=== PATIENT | female | born 1985 | race African-American/Black ===

== ENCOUNTER 2017-10-02 14:42 | Inpatient (IN) ==
[2017-10-02] MEDS ORDERED: ONDANSETRON 4 MG/2 ML VIAL IV PRN (15:07)
[2017-10-02] MEDS ORDERED: BUTORPHANOL 2 MG/ML VIAL IV PRN (15:07)
[2017-10-02] MEDS ORDERED: BUTORPHANOL 1 MG/ML VIAL IV PRN (15:07)
[2017-10-02] MEDS ORDERED: DINOPROSTONE VAG GEL 10 MG SYRINGE VAG ONE (15:10)
[2017-10-02 15:47] LABS: Basophils % 0.3 % (0.0-0.8); Eosinophils # 0.1 10*3/uL (0.0-0.87); Eosinophils % 1.4 % (0.00-10.9); Hematocrit 34.9 VOL% (35.7-47.0); Hemoglobin 11.6 GM/DL (12.0-16.0); Immature Granulocytes % 0.6 %; Immature Granulocytes Absolute 0.06 #; Lymphocytes # 2.1 10*3/uL (1.4-4.0); Lymphocytes % 22.3 % (21.3-54.2); Mean Corpuscular HGB Conc 33.2 GM/DL (32-36); Mean Corpuscular Hemoglobin 28 PG (27-34); Mean Corpuscular Volume 85.5 FL (87-102); Mean Platelet Volume 11.9 FL (9.6-12.0); Monocytes # 0.6 10*3/uL (0.11-0.8); Monocytes % 6.7 % (1.7-12.7); Neutrophils # 6.4 10*3/uL (1.4-7.4); Neutrophils % 68.7 % (38.7-73.9); Platelet Count 236 T/CUMM (130-400); Red Blood Count 4.08 MC/CUMM (3.8-5.5); White Blood Count 9.3 T/CUMM (4-12)
[2017-10-02 16:26] LABS: Albumin 3.1 G/DL (3.4-5.0); Bilirubin,Total 0.4 MG/DL (0.2-1.0); Calcium 8.9 MG/DL (8.5-10.1); Osmolality,Calculated 277.3 MOS/KG (273-304); Potassium 3.8 MMOL/L (3.5-5.1); Total Protein 6.2 G/DL (6.4-8.3); Uric Acid 3.7 MG/DL (2.6-6.0)
[2017-10-02] MEDS ORDERED: diphenhydrAMINE 50 MG/1 ML VIAL IV PRN ×2 (17:43)
[2017-10-02] MEDS ORDERED: FAMOTIDINE 20 MG/2 ML VIAL IV ONE (17:43)
[2017-10-02] MEDS ORDERED: CITRIC ACID/SODIUM CITRATE 30 ML UDCUP PO ONE (17:43)
[2017-10-02] MEDS ORDERED: PROMETHAZINE 25 MG/1 ML VIAL IM ONE (17:43)
[2017-10-02] MEDS ORDERED: ePHEDrine 50 MG/ML AMP IV PRN ×2 (17:43)
[2017-10-02] MEDS ORDERED: hydrOXYzine HCL 25 MG/1 ML VIAL IM PRN (17:43)
[2017-10-02] MEDS ORDERED: LACTATED RINGERS 1,000 ML IV SCH (18:00)
[2017-10-02] MEDS: LACTATED RINGERS 1,000 ML IV SCH ×3 (18:05→22:47)
[2017-10-02] MEDS: fentaNYL 2 MCG/ROPIV 0.2% EPID 150 ML EPIDURAL SCH (19:25)
[2017-10-02 20:19] LABS: Rapid Plasma Reagin Confirm NONREACTIVE (Nonreactive)
[2017-10-02 21:49] LABS: Apearance,Urine CLEAR (Clear); Bilirubin,Urine Negative (Negative); Blood, Urine Negative (Negative); Glucose,Urine (UA) Negative (Negative); Ketones,Urine 5 mg/dL (Negative); Mucus,Urine Occasional /LPF (Occasional); Nitrite,Urine Negative (Negative); Protein,Urine Negative; Squamous Epithelial Cell,Urine Occasional /HPF (0-10); Urine Color Yellow (Yellow); Urine Specific Gravity 1.016 (1.001-1.035); WBC,Urine 2 /HPF (0-6)
[2017-10-02 22:00] LABS: Barbiturates Screen,Urine Negative (Negative); Benzodiazepines Screen,Urine Negative (Negative); Cannabinoid Screen,Urine Negative (Negative); Opiate Screen,Urine Negative (Negative); Phencyclidine Screen,Urine Negative (Negative)
[2017-10-03] MEDS ORDERED: AMPICILLIN INJ 2,000 MG in SODIUM CHLORIDE 0.9% 100 ML IV ONE (00:01)
[2017-10-03] MEDS ORDERED: OXYTOCIN/LR 20 UNIT/1,000 ML BAG IV SCH (03:00)
[2017-10-03] MEDS ORDERED: AMPICILLIN INJ 1,000 MG in SODIUM CHLORIDE 0.9% 100 ML IV SCH (04:00)
[2017-10-03] MEDS: fentaNYL 2 MCG/ROPIV 0.2% EPID 150 ML EPIDURAL SCH (04:25)
[2017-10-03] MEDS ORDERED: miSOPROStol 200 MCG TABLET ONE (07:41)
[2017-10-03] MEDS ORDERED: METHYLERGONOVINE 0.2 MG/1 ML AMP ONE (07:41)
[2017-10-03 08:28] LABS: Cord Venous Blood HCO3 24.2 MMOL/L; Cord Venous Blood PO2 43.1 MMHG
[2017-10-03] MEDS ORDERED: OXYTOCIN/LR 20 UNIT/1,000 ML BAG IV ONE (10:23)
[2017-10-03] MEDS: IBUPROFEN 800 MG TABLET PO PRN ×2 (11:20→19:34)
[2017-10-03] MEDS: BENZOCAINE 20%/MENTHOL 0.5% SPRAY 56 GM CAN TOP PRN (15:54)
[2017-10-04 06:02] LABS: Basophils % 0.3 % (0.0-0.8); Eosinophils # 0.2 10*3/uL (0.0-0.87); Hematocrit 30.4 VOL% (35.7-47.0); Hemoglobin 9.9 GM/DL (12.0-16.0); Lymphocytes # 3.1 10*3/uL (1.4-4.0); Lymphocytes % 29.4 % (21.3-54.2); Mean Corpuscular HGB Conc 32.6 GM/DL (32-36); Mean Corpuscular Hemoglobin 28 PG (27-34); Mean Corpuscular Volume 86.6 FL (87-102); Mean Platelet Volume 11.6 FL (9.6-12.0); Monocytes # 0.6 10*3/uL (0.11-0.8); Monocytes % 5.5 % (1.7-12.7); Neutrophils # 6.5 10*3/uL (1.4-7.4); Neutrophils % 61.8 % (38.7-73.9); Platelet Count 221 T/CUMM (130-400); Red Blood Count 3.51 MC/CUMM (3.8-5.5); Red Cell Distribution Width 15.9 % (9.3-17.3); White Blood Count 10.5 T/CUMM (4-12)
[2017-10-04] MEDS: IBUPROFEN 800 MG TABLET PO PRN ×2 (09:00→17:18)
[2017-10-04] MEDS: DOCUSATE SODIUM 100 MG CAPSULE PO PRN ×2 (17:18→21:13)
[2017-10-05] MEDS: IBUPROFEN 800 MG TABLET PO PRN ×2 (00:55→10:36)
[2017-10-05 08:32] VITALS: BP 137/87
[2017-10-05] MEDS: DOCUSATE SODIUM 100 MG CAPSULE PO PRN (09:06)
[2017-10-05] MEDS: BENZOCAINE 20%/MENTHOL 0.5% SPRAY 56 GM CAN TOP PRN (12:12)
== END 2017-10-05 13:25 | disposition home or self-care (01) | DRG 560 ==
LOC: N.LDOUT 14:42 → N.LD 14:44 → N.OB 10-03 11:05
PROVIDERS: ADMIT Obstetrics & Gynecology; ATTEND Obstetrics & Gynecology